=== PATIENT | male | born 1965 | race African-American/Black ===

== ENCOUNTER 2023-04-20 10:19 | Emergency (ER) | payer MEDICAID, SELFPAY ==
[2023-04-20 10:20] VITALS: BP 141/73; PULSE 75; RESP 14; TEMP 36.4; O2SAT 100; BMI 33.5
--- NOTE | 2023-04-20 10:54 | EDS_ITS ---
HPI History of Present Illness Chief Complaint: Abd Pain Informant: patient Narrative Narrative: 58-year-old diabetic male presenting to the emergency room stating that he is out of his insulin. He states that he takes 5 units 3 times a day. He was living in the [place] area has recently relocated here to [place]. He does not have a local doctor yet. He states that he talk to his pharmacist and he is not able to refill his insulin for a day or 2 secondary to insurance reasons. The patient states that he has been on numerous oral agents for type 2 diabetes none of which have agreed with him. He also notes a history of stomach ulcer . He takes Pepcid 20 mg once a day. He states for the past several months he has had an increase in the burning sensation in his epigastrium. He denies any chest pain or shortness of breath. Does not radiate to his back. No black bloody or tarry stools. He states that he probably would not of come to the hospital today and mention the insulin except the epigastric discomfort has been worse. He notes that he was drinking beer but recently changed his diet to be eating healthier . [facility] Medical History Diabetes type 2, uncontrolled GERD (gastroesophageal reflux disease) Home Medications famotidine 20 mg tablet (Heartburn Prevention) 20 mg PO DAILY 04/20/23 [History Last Taken Unknown] fluticasone propionate 50 mcg/actuation nasal spray,suspension (24 Hour Allergy Relief) 1 spray intranasal DAILY PRN allergy symptoms 04/20/23 [History Last Taken Unknown] pantoprazole 40 mg tablet,delayed release (Protonix) 40 mg PO DAILY #30 tabs 04/20/23 [Rx Last Taken Unknown] sucralfate 1 gram tablet (Carafate) 1 g PO Q6H 14 days #56 tabs 04/20/23 [Rx Last Taken Unknown] Allergy/AdvReac Type Severity Reaction Status Date / Time Penicillins Allergy Mild Rash Verified 04/20/23 10:22 Social History Smoking Status: Never smoker ROS ROS ED Constitutional Constitutional ED: Denies chills, fever(s) or weight loss Eyes Eyes: Denies change in vision or diplopia ENT ENT ED: Denies ear pain, rhinorrhea or sore throat Cardiovascular Cardiovascular: Denies chest pain, orthopnea, palpitations or racing heartbeat Respiratory/Chest Respiratory/Chest: Denies cough, dyspnea or orthopnea Gastrointestinal Gastrointestinal: Reports abdominal pain; Denies diarrhea, nausea or vomiting Genitourinary Genitourinary ED: Denies dysuria, hematuria or urinary frequency Musculoskeletal Musculoskeletal: Denies arthralgias, back pain or myalgias Integumentary Denies abscess or rash Neurologic Neurologic: Denies headache(s) or weakness Psychiatric Psychiatric: Denies anxiety, depression, suicidal ideation or suicidal thoughts Endocrine Endocrinology: Denies polydipsia, polyphagia or polyuria Allergic/Immunologic Allergic/Immunologic ED: Denies mouth swelling, tongue swelling or urticaria EXAM Physical Exam Const Vital Signs: 04/20/23 10:20 04/20/23 12:13 Temperature 97.5 F L Temperature Source Temporal Pulse Rate 75 74 Respiratory Rate 14 16 Blood Pressure 141/73 H Blood Pressure Mean 95 Pulse Ox 100 Oxygen Delivery Method Room Air Positive well nourished and well developed General Appearance ED: well developed HEENT Reports normocephalic, head/scalp atraumatic and moist mucous membranes Eyes PERRL and EOMs intact bilaterally Neck no lymphadenopathy, supple and no JVD Resp normal respiratory effort and clear to auscultation bilaterally Cardio regular rate, regular rhythm and no murmurs GI normal to inspection, nondistended, normoactive bowel sounds and non-tender Palpation: soft Back/Spine no CVA tenderness and normal ROM Extremity normal to inspection General Extremety ED: Negative for edema General Extremity: Negative for edema Neuro oriented x3 and CN's II-XII intact bilaterally Sensorium / Orientation: alert Motor Exam: strength 5/5 throughout Psych mental status grossly normal Mood & Affect: Negative for depressed or tearful Skin no rashes or lesions noted and no wounds MDM MDM MDM Narrative Medical decision making narrative: Basic blood works obtained shows a normal white count 6.1 hemoglobin 13.4. CO2 is 27 anion gap to creatinine 0.74 glucose 247. Liver lipase normal. We gave the patient 10 units of insulin. I am going to change him from Pepcid to Protonix and adding Carafate. I will provide him with a new primary care doctor to call stating any arrange early follow-up and establish care. He will be able to get his refill of his insulin hopefully tomorrow or the next day. The remaining insulin in the KwikPen that we used today he can take with him. History & Record Review Discussion w/independent historian: Patient Lab Data Attestation: I reviewed the patient's lab results. Labs: Laboratory Results - last 24 hr 04/20/23 11:05 WBC 6.1 RBC 4.55 L Hgb 13.4 Hct 39.9 L MCV 87.7 MCH 29.5 MCHC 33.6 RDW Std Deviation 40.8 RDW Coeff of Cindi 12.7 Plt Count 245 MPV 11.0 Immature Gran % (Auto) 0.700 Neut % (Auto) 62.8 Lymph % (Auto) 25.8 [facility] % (Auto) 6.7 Eos % (Auto) 3.3 Baso % (Auto) 0.7 Absolute Neuts (auto) 3.9 Absolute Lymphs (auto) 1.58 Nucleated RBC % 0 Sodium 138 Potassium 4.4 Chloride 109 H Carbon Dioxide 27.0 Anion Gap 2 L BUN 11 Creatinine 0.74 Estim Creat Clear Calc 150.69 Est GFR (MDRD) Af Amer 141 Est GFR (MDRD) Non-Af 117 BUN/Creatinine Ratio 15.0 Glucose 247 H Calcium 8.9 Total Bilirubin 0.60 Direct Bilirubin 0.17 AST 15 ALT 26 Alkaline Phosphatase 64 Total Protein 6.6 Albumin 3.7 Globulin 2.9 Lipase 24 Discharge Plan Triage Chief Complaint: Abd Pain ED Provider: Duong Perrin Dx/Rx/DC Orders Clinical Impression: Type 2 diabetes mellitus, Gastritis Instructions: Diabetes: Caring for Your Body, ED Gastritis (Adult) Prescriptions: New pantoprazole [Protonix] 40 mg tablet,delayed release (DR/EC) 40 mg PO DAILY Qty: 30 0RF sucralfate [Carafate] 1 gram tablet 1 g PO Q6H 14 Days Qty: 56 0RF No Action famotidine [Heartburn Prevention] 20 mg tablet 20 mg PO DAILY fluticasone propionate [24 Hour Allergy Relief] 50 mcg/actuation spray,suspension 1 spray intranasal DAILY PRN (Reason: allergy symptoms) Rx Instructions: administer into each nostril Primary Care Provider: Duong Evans MD Referrals: Love Loaiza MD [Med Staff - [employer]] - As soon as possible Activity Restrictions/Additional Instructions: Please discontinue the Pepcid. Begin Protonix daily and Carafate (sucralfate) before each meal and at bedtime for the next 14 days. Disposition Disposition: Home, Self Care Discharge Date/Time: 04/20/23 12:13
[2023-04-20] MEDS: Pantoprazole Sodium 40 MG Tablet PO (11:04)
[2023-04-20] MEDS: Mag Hydrox/Al Hydrox/Simeth 30 ML UDC PO (11:05)
[2023-04-20 11:09] LABS: Absolute Lymphocyte Count 1.58 X10^3/uL (0.83-4.51); Absolute Neutrophil Count 3.9 X10^3/uL (2.0-7.7); Basophil# 0.04 X10^3/uL; Basophil% 0.7 % (0-1); Eosinophils% 3.3 % (0-5); Hematocrit 39.9 % (40-54); Hemoglobin 13.4 g/dL (13.0-16.5); Lymphocyte # 1.58 X10^3/ul (0.83-4.51); Lymphocyte % 25.8 % (19-41); Mean Corp Hgb Conc 33.6 g/dL (32-36); Mean Corpuscular Hgb 29.5 pg (27.0-32.0); Mean Corpuscular Volume 87.7 fL (80-94); Monocyte# 0.41 X10^3/uL; Monocyte% 6.7 % (0-10); NRBC Flagged by Analyzer 0 % (0-5); Neutrophil # 3.85 X10^3/uL (2.7-7.7); Neutrophil % 62.8 % (47-70); Platelet Count 245 K/mm3 (150-450); RBC Distribution Width CV 12.7 % (11.6-14.6); RBC Distribution Width SD 40.8 fl (35.1-43.9); Red Blood Count 4.55 M/mm3 (4.6-6.2); White Blood Count 6.1 K/mm3 (4.4-11.0)
[2023-04-20 11:29] LABS: AST(SGOT) 15 U/L (15-37); Alanine Aminotransfer ALT/SGPT 26 U/L (16-61); Albumin, Serum 3.7 g/dL (3.2-5.0); Alkaline Phosphatase 64 U/L (45-117); Anion Gap 2 (5-15); BUN 11 mg/dL (7-18); Bilirubin, Direct 0.17 mg/dL (0.00-0.30); Calcium,Total 8.9 mg/dL (8.5-10.1); Chloride 109 mmol/L (98-107); Creatinine, Serum 0.74 mg/dL (0.70-1.30); EST Glomerular Filtration Rate 117 mL/min (>60); Est Glom Filt Rate - Afr Amer 141 mL/min (>60); Estimated Creatinine Clearance 150.69 ml/min; Globulin 2.9 g/dL (2.2-4.2); Glucose 247 mg/dL (74-106); Lipase 24 U/L (13-75); Potassium 4.4 mmol/L (3.5-5.1); Protein, Total 6.6 g/dL (6.4-8.2); Sodium Level 138 mmol/L (136-145)
[2023-04-20] MEDS: Insulin Lispro 100 UNIT/ML INSULN.PEN 10 UNIT SC (12:09)
[2023-04-20 12:13] VITALS: PULSE 74; RESP 16
== END 2023-04-20 12:13 | disposition home or self-care (01) ==
PROVIDERS: Emergency Provider Emergency Medicine; Visit Provider Emergency Medicine
DX: K29.70 Gastritis, unspecified, without bleeding (principal); E11.9 Type 2 diabetes mellitus without complications; Z79.4 Long term (current) use of insulin; K21.9 Gastro-esophageal reflux disease without esophagitis; Z79.899 Other long term (current) drug therapy
CPT/HCPCS: 80048; 80076; 83690; 85025; 99283